=== PATIENT | female | born 1985 | race Caucasian/White ===

== ENCOUNTER 2017-03-25 01:16 | Emergency (ER) | payer SELFPAY ==
[~2017-03-25] VITALS: Ht 175.3 cm; Wt 90.9 kg
[2017-03-25 03:20] VITALS: BP 124/72
[2017-03-25] MEDS ORDERED: SILVER SULFADIAZINE 1% CREAM 25GM TOP ONE (03:45)
== END 2017-03-25 04:21 | disposition home or self-care (01) ==
LOC: ER 01:20
DX: T21.25XA Burn of second degree of buttock, initial encounter (principal); F17.210 Nicotine dependence, cigarettes, uncomplicated; F12.10 Cannabis abuse, uncomplicated; Z90.49 Acquired absence of other specified parts of digestive tract; T31.0 Burns involving less than 10% of body surface; X03.8XXA Other exposure to controlled fire, not in building or structure, initial encounter; Y93.89 Activity, other specified; Y92.832 Beach as the place of occurrence of the external cause
CPT/HCPCS: 16020; 99284; X7700